=== PATIENT | male | born 1955 | race Caucasian/White ===

== ENCOUNTER → 2021-11-12 | Outpatient (CLI) | payer MEDICARE, SELFPAY ==
--- NOTE | 2021-11-12 12:30 | CT_ITS ---
STUDY: LOW DOSE CT LUNG CANCER SCREENING REASON FOR EXAM: Male, 66 years old. Lung cancer screening -- and gt;30pk yr hx;current smoker;asymptomatic RADIATION DOSAGE (If Supplied By Facility): CTDIvol = ( 3.02 ) mGy, DLP = ( 114.00 ) mGycm TECHNIQUE: No contrast was administered. Low dose technique was utilized (average mAS-38 and kVp 120). 1.25 mm axial source images with a slice interval of 1.25-mm were reconstructed in lung windows. 2.5 mm axial source images with a slice interval of 2.5-mm were reconstructed in lung windows. 5.0 mm axial source images with a slice interval of 5.0-mm were reconstructed in soft tissue windows. COMPARISON: None. NODULES: No suspicious nodules are seen. Emphysema: Hyperinflation. Diffuse emphysematous changes with centrilobular emphysema. Mild linear scarring at the right lung base. Focal reticular nodular density at the posterior medial segment of the left lower lobe. Focal bronchiectasis at that site suggestive of scarring. Endobronchial lesion: None Aorta: Atherosclerotic plaque formation of the aortic arch. CORONARY ARTERIES: Coronary artery calcification is seen. Heart: Unremarkable Pulmonary artery: Unremarkable Mediastinal nodes: Small mediastinal lymph nodes. Other chest and abdominal findings: CT/Low Dose CT Lung Screening IMPRESSION: Lung-RADS category 2 - Continue annual screening with LDCT in 12 months. IMPORTANT NOTES FOR USE: ACR Lung-RADS Version 1.1 Assessment Categories Release Date: 2018 Category: Coded 0-4 bases on nodule(s) with highest degree of suspicion. Negative screen is defined as categories 1 and 2; a positive screen is defined as categories 3 and 4. Category 3 and 4A nodules that are unchanged on interval CT should be coded as category 2, and individuals returned to screening in 12 months. Category 4X: Category 3 or 4 nodules with additional imaging findings that increase the suspicion of lung cancer, such as spiculation, GGN that doubles in size in 1 year, enlarged lymph notes, etc. Category Modifiers: S (significant finding unrelated to lung cancer) Electronically Signed: Fer Rosenthal MD at 13:37 EDT ,
== END | disposition home or self-care (01) ==
PROVIDERS: Referring Provider Nurse Practitioner Family; Visit Provider Nurse Practitioner Family
DX: Z87.891 Personal history of nicotine dependence (principal); Z12.2 Encounter for screening for malignant neoplasm of respiratory organs
CPT/HCPCS: 71271

== ENCOUNTER → 2022-08-05 | Outpatient (CLI) | payer OTHER, SELFPAY ==
[2022-08-05 14:58] LABS: PSA,Total - Annual Screen 0.58 ng/mL (0.00-4.00)
== END | disposition home or self-care (01) ==
PROVIDERS: Referring Provider Urology; Visit Provider Urology
DX: Z12.5 Encounter for screening for malignant neoplasm of prostate (principal)
CPT/HCPCS: 36415; 84153; G0103

== ENCOUNTER → 2022-09-16 | Outpatient (CLI) | payer OTHER, SELFPAY ==
--- NOTE | 2022-09-16 11:50 | RAD_ITS ---
STUDY: X-RAY - RIGHT HAND REASON FOR EXAM: Male, 67 years old. Pain. Evaluate for arthritis. TECHNIQUE: 3 view(s) of the hand. COMPARISON: None. FINDINGS: Osteopenia. Mild arthrosis of the radiocarpal articulation. Mild arthrosis of the distal radioulnar joint. Mild arthrosis of the radial carpal row of the wrist. Cystic change in the capitate. Moderate arthrosis of the first CMC joint. Mild arthrosis of the MCP and IP joints. Normal soft tissues. RAD/Hand 2 Views IMPRESSION: Osteopenia with diffuse mild osteoarthritic changes as described No acute abnormality or erosive changes. Electronically Signed: Horacio Woods MD at 9:29 EDT ,
--- NOTE | 2022-09-16 11:50 | RAD_ITS ---
STUDY: X-RAY - LEFT HAND REASON FOR EXAM: Male, 67 years old. Pain. TECHNIQUE: 3 view(s) of the hand. COMPARISON: None. FINDINGS: Osteopenia. Mild arthrosis of the radiocarpal articulation. Mild arthrosis of the distal radioulnar joint. Mild arthrosis of the radial carpal row of the wrist. Cystic change in the capitate. Moderate arthrosis of the first CMC joint. Mild arthrosis of the MCP and IP joints. Normal soft tissues. RAD/Hand 2 Views IMPRESSION: Osteopenia with diffuse mild osteoarthritic changes as described No acute abnormality or erosive changes. Electronically Signed: Horacio Woods MD at 9:32 EDT ,
== END | disposition home or self-care (01) ==
LOC: RAD 11:46
DX: M19.049 Primary osteoarthritis, unspecified hand (principal)
CPT/HCPCS: 73120

== ENCOUNTER → 2022-12-19 | Outpatient (CLI) | payer OTHER, SELFPAY ==
--- NOTE | 2022-12-22 08:27 | PFT ---
INTRODUCTION: The patient is a 67-year-old male who presents for pulmonary function studies secondary to a diagnosis of COPD. Respiratory therapy reported good patient effort. Bronchodilators were used during testing. INTERPRETATION: Forced expiration spirometry demonstrates the presence of a moderate large airways obstructive ventilatory defect. There was no significant response to aerosolized bronchodilators. Spirograms are of good quality but do not plateau indicating slow emptying of the lungs. Body plethysmography was performed and revealed an elevated TLC and RV, indicative of underlying hyperinflation and air trapping. Diffusing capacity by single breath CO is reduced to 48% of predicted. IMPRESSION: Irreversible moderate large airways obstructive ventilatory defect with associated hyperinflation, air trapping and symmetric reduction in diffusing capacity.
== END | disposition home or self-care (01) ==
LOC: PSN 12:33
DX: J44.9 Chronic obstructive pulmonary disease, unspecified (principal)
CPT/HCPCS: 94060; 94726; 94729

== ENCOUNTER → 2023-01-23 | Outpatient (CLI) | payer MEDICARE, SELFPAY ==
--- NOTE | 2023-01-23 14:07 | CT_ITS ---
EXAM: CT CHEST, LUNG CANCER SCREENING WITHOUT INTRAVENOUS CONTRAST CLINICAL INDICATION: NICOTINE DEPENDENCE TECHNIQUE: Helically acquired images were obtained of the chest without intravenous contrast using low dose (LDCT) lung cancer screening protocol. This CT exam was performed using one or more of the following dose reduction techniques: automated exposure control, adjustment of the mA and/or kV according to patient size, and/or use of iterative reconstruction technique. COMPARISON: CT Lung Cancer Screening dated 11/12/2021 FINDINGS: LUNGS AND PLEURAL SPACES: Stable diffuse pulmonary emphysema. Stable 12 mm right lower lobe pulmonary nodule. Previously noted patchy nodular densities within the left lower lobe have cleared. No pleural effusion or thickening. No pneumothorax. HEART: Normal. Heart size is normal. No pericardial effusion. No significant coronary artery calcifications. MEDIASTINUM: Moderate size hiatal hernia. No mediastinal or hilar adenopathy. Esophagus is unremarkable. THYROID: Normal. No thyroid nodules or calcification. BONES/JOINTS: No suspicious lytic or blastic abnormality. VASCULATURE: Heart is normal size. Minimal coronary artery calcification. No aortic aneurysm. LYMPH NODES: Normal. No enlarged lymph nodes. STOMACH AND BOWEL: Surgical changes of gastric sleeve. CT/Low Dose CT Lung Screening IMPRESSION: 1. Stable 12 mm right lower lobe pulmonary nodule. 2. Clearing of the previously noted left lower lobe nodular infiltrates. 3. Diffuse pulmonary emphysema. 4. Moderate size hiatal hernia. Lung-RADS score: 2S - Benign Appearance or Behavior. Additional clinically significant or potentially clinically significant findings are described. Recommend continued annual screening with a low-dose CT (LDCT) in 12 months. Electronically Signed: Misha Rashid MD at 16:29 [facility] ,
== END | disposition home or self-care (01) ==
LOC: CT 14:06
DX: Z12.2 Encounter for screening for malignant neoplasm of respiratory organs (principal); F17.210 Nicotine dependence, cigarettes, uncomplicated
CPT/HCPCS: 71271

== ENCOUNTER → 2023-07-07 | Outpatient (CLI) | payer MEDICARE, SELFPAY ==
[2023-07-07 13:29] VITALS: PULSE 62; PULSE 73; O2SAT 95; O2SAT 96
--- NOTE | 2023-07-07 13:30 | CPS ---
Patient is unable to walk any further than 10-40 ft at home. SpO2 96% sitting on room air. Patient walked with a walker for 32 feet before he felt like he may fall. SpO2 94-95%. Patient was not sure if he would be able to walk anymore and this therapist did not feel like it was safe to have him walk, as his legs were buckling during the 32 feet that he already walked.
--- NOTE | 2023-07-09 08:43 | PCM.PSN.6M ---
PSN 6 Minute Walk Test 6 Minute Walk Test 6 Minute Walk Test: 6 Minute Walk Test PSN:6-Minute Walk Test Start: 07/07/23 13:29 Freq: Status: Active Protocol: [id number].6MINW Document 07/07/23 13:29 DHARMESH (Rec: 07/07/23 13:40 DHARMESH [id number]) 6 Minute Walk Test Date Performed 07/07/23 Time Performed 12:30 Height 5 ft 11 in Weight: 197 lb Weight in Pounds 197.[address]: Yumiko Scott [employer] Assistive device used: Walker Pre-test Oxygen Delivery Method Room Air Pulse Ox (%) 96 Pulse Rate (60-100 beats/min) 62 Dyspnea Deshaun Scale (0-10) 0 Exertion Deshaun Scale (6-20) 6 1st minute Oxygen Delivery Method Room Air Pulse Ox (%) 95 Pulse Rate (60-100 beats/min) 73 Full Laps Walked 0 Partial Lap, Number of Tiles Walked 32 Total Distance Walked (ft) 32 07/07/23 13:30 Cardiopulmonary Services by Iliana Thao Patient is unable to walk any further than 10-40 ft at home. SpO2 96% sitting on room air. Patient walked with a walker for 32 feet before he felt like he may fall. SpO2 94-95%. Patient was not sure if he would be able to walk anymore and this therapist did not feel like it was safe to have him walk, as his legs were buckling during the 32 feet that he already walked. Initialized on 07/07/23 13:30 - END OF NOTE Interpretation Interpretation: The patient ambulated 32 feet over the course of the walk test, stating that he was unable to ambulate any further. Pretesting oxygen saturation was noted to be 96% on room air. With ambulation, the monique oxygen saturation was 95%. There was no significant exertional oxygen desaturation. Recommendations Recommendations: Nondiagnostic ambulatory oximetry testing due to inadequate walk distance.
== END | disposition home or self-care (01) ==
PROVIDERS: Referring Provider Nurse Practitioner Acute Care; Visit Provider Nurse Practitioner Acute Care
DX: J44.9 Chronic obstructive pulmonary disease, unspecified (principal)

== ENCOUNTER → 2023-10-28 | Outpatient (CLI) | payer MEDICARE, SELFPAY ==
--- NOTE | 2023-10-28 14:38 | CT_ITS ---
STUDY: CT BRAIN WITHOUT CONTRAST REASON FOR EXAM: Male, 68 years old. [facility] RADIATION DOSAGE (If Supplied By Facility): CTDIvol = ( 47.06 ) mGy, DLP = ( 872.68 ) mGycm TECHNIQUE: Transaxial CT imaging of the brain was performed without administration of intravenous contrast material. Individualized dose optimization techniques were used for this CT. COMPARISON: No relevant priors. FINDINGS: Normal soft tissue structures. Normal calvarium. Normal size ventricles and extra-axial spaces for the patient''s age. Normal white matter tracts of the cerebral hemispheres. Normal basal ganglia and thalami. Normal brainstem. Normal cerebellum. There is no intracranial hemorrhage. There are no findings of an acute ischemic infarction. Normal visualized paranasal sinuses. CT/Brain/Head without Contrast IMPRESSION: Normal unenhanced CT scan of the brain. Electronically Signed: Teja Lopes MD at 22:16 EDT ,
== END | disposition home or self-care (01) ==
LOC: CT 14:23
DX: G31.84 Mild cognitive impairment of uncertain or unknown etiology (principal)
CPT/HCPCS: 70450

== ENCOUNTER 2024-06-20 14:30 | Outpatient (RCR) | payer MEDICARE, SELFPAY ==
--- NOTE | 2024-05-03 14:30 | HP.PTEVAL_ITS ---
Patient's Visit Information Visit Information Visit Information: MILAGROS BARCLAY is a 69 year old M referred to Physical Therapy by Dr. Van Machuca MD with a diagnosis of LUMBAR RADICULOPATHY. Date of Evaluation: 05/03/24 Physical Therapist: Burt Sanderson, PT, Cert MDT, OCS Visit Plan Frequency: 2x /Week Duration: 4 Weeks Plan: PATIENT IS HIGHLY IRRITABLE PAIN PT INTERVENTIONS DLS ,POSTURAL EX'S ,BLE STRENGTHENING ,FUNCTIONAL STRENGTHENING ,ENDURANCE EX'S AND MODALITIES Subjective Subjective: This 69 y/o male presents to physical therapy with generalized weakness. Patient has developed progressive weakness in legs ~ 2 years. Patient states generalized weakness in arms. Patient has lumbar fusion x3 ,1982 ,1999 and revision 2000,bilateral TKA Patient has complexity issues .Patient symptoms have been worsening global throughout body. Patient is negative for neuropathy .Patient is recovered from lung CA. Patient plans neurological center at [facility]. Patient is frustrated with pain and function . States Dr doesn't know way I have pain. Patient vision decreasing has difficulty reading. Patient pain is aggravated with walking/standing . Patient can only 100 ft with rollator in PT due to pain and weakness. Unable to squat, lifting and bending Coughing/sneezing -. Bowel/bladder -.Patei No pain medication. Patient pain and weakness impairs ADLS and housework tasks. Alleviating lives 1 floor apartment. Tub/shower set up with step. Patient has case manger throughout [facility]. Patient has difficulty with generalized ADL. SOCIAL: lives alone Pain Bilateral Lower Extremity: Pain Intensity (Out of 10): 8 Pain Intensity Range: 10 Bilateral Back: Pain Intensity (Out of 10): 10 Pain Intensity Range: 10 Bilateral Shoulder: Pain Intensity (Out of 10): 8 Objective Objective: POSTURE: mild forward posture GAIT:reciprocal pattern with rollator slow millicent forward posture needs rest PALPATION: tender LS /SI LUMBAR ROM: flexion mod ,extension mod/severe loss ,side glides mod loss FLEXABILITY: hamstrings mod/severe loss NEURO: denies paresthesia/tingling occasional fingers MMT:( peak force) quads 9.7 left ,right 9.8 ,hamstrings right 10.9 ,left 11.2 ,hip flexion right 18.9 ,left 17 ,8 ,ankle left 0 DF Special Tests L/S Left Straight Leg Raise: Negative L/S Right Straight Leg Raise: Negative L/S Left Femoral Nerve Tension: Negative L/S Right Femoral Nerve Tension: Negative Balance/Special Test Scores Oswestry Low Back Score: 39 Goals Goal 1:: Patient to be I with HEP for strengthening Goal Time Frame: 4-6 Weeks Goal 2:: Patient to improve peak force of quads/hams /hip by 5-10 # to improve gait and function Goal Time Frame: 4-6 Weeks Goal 3:: Patient to improve lumbar ROM for function of recovery to put on shoes . Goal Time Frame: 4-6 Weeks Goal 4:: Patient to improve BACK score by 5 points to improve QOL and function Goal Time Frame: 4-6 Weeks Goal 5:: Patient to demonstrate 40% improvement with less pain and improved function Goal Time Frame: 4-6 Weeks Rehabilitation Potential Physical Therapy Diagnosis: This patient has complexity issues with pain global h/o lumbar fusion x3 ,TKA x2 with weakness in legs ,poor lumbar ROM ,impairs gait and ADLS with patient presents with frustration with condition thus benefit from skilled PT Rehabilitation Potential: Fair Anticipated Interventions Patient/Client Instruction: Educate patient on: Condition and Plan of Care For the Purpose of:: To decrease pain, To increase ROM, To improve muscle performance and motor function, To improve ability to perform ADL's, To increase tolerance to activity/condition/position, To improve performance and independence with ADL's, To improve ability of physical actions for home/community/work/leisure, To improve gait and locomotor functions, To increase flexibility/ROM, To improve endurance, To improve balance and To improve tolerance to ADL's Therapeutic Exercise to Include: Strength training, Endurance training, Balance training, Postural training, Flexibilty training and Dynamic Lumbar Stabilization Comment: BLE For the Purpose of:: To decrease pain, To increase ROM, To improve muscle performance and motor function, To improve ability to perform ADL's, To increase tolerance to activity/condition/position, To improve ability of physical actions for home/community/work/leisure, To improve gait and locomotor functions, To improve health of tissue, To decrease soft tissue restriction, To improve balance, To reduce risk of recurrence and To improve tolerance to ADL's TENS: Yes IF ES: Yes Cryotherapy (ice pack, ice massage): Yes Thermo therapy (hot pack): Yes Ultrasound (thermal/non thermal): Yes For the Purpose of:: To decrease pain, To increase ROM, To improve nutrient delivery to tissue, To increase oxygenation perfusion, To improve health of tissue and To decrease soft tissue restriction Text: Thank you for the opportunity to evaluate your patient. For Medicare and Medicare HMO plans, please review the plan of care and approve it. It will need to be FAXED BACK to us at [phone] for Medicare purposes. For Medicare only, by signing this I certify the plan of care. Please let me know if there are questions or concerns regarding this plan of care. Physician Signature: Date:
--- NOTE | 2024-06-20 15:14 | HP.PTDCSUM_ITS ---
Discharge Summary D/C summary: It has been my pleasure to treat MILAGROS BARCLAY referred by Dr. Van Machuca MD, with the diagnosis of LUMBAR RADICULOPATHY for a total of 4 visit(s). Discharge Date: 06/20/24 Please see the following information for a summary of their discharge status. Subjective Subjective: Saw pain and neuro doctor in [facility] last Thursday and said he has FM. Too many other doctor do not know. Offered gabapentin but does not wan t to take. Seen 14 doctors for this and biopsies and no one knows what is going on. Can't even wear socks today b/c whole legs hurt. 01/18. Fell recently so using walker since. Home bound and sits in recliner all day. Cannot remember seeing Sven in pain management. Only hting that helps me is acupunture but cannot get to [place] for treatment. No regular exercises as he is afraid to get out of chair. Fearful of legs giving out. Has paid for ex the couple times he has done them in here with pain the next day. Has planning supervisor that he uses to heelp him out, he is mostly mostly homebound. Deals with [facility] . Pain Bilateral Lower Extremity: Pain Intensity (Out of 10): 10 Bilateral Back: Pain Intensity (Out of 10): 9 Bilateral Shoulder: Pain Intensity (Out of 10): Unrated Overall Improvement % Improvement: 0 Objective Objective/Function: Walks slowly with wh walker today hunched over and uncertain of gait. Legs seem to quickly and without warning sightly give out every now and then without increased pain and causes him to want to sit on his rollator often. Unable to stand up tall even to a neutral position in spine, head is forward adn scapula protracted. Very tensee with chronic pain. legs are weak with 3/5 hip flexion and knee ext and muscle vanessa not available today. UE feel weak alos. Pt frustrated with chronic pain and lack of solutions from multiple doctors. In tears at time, has meeting with counselor this week. Goals Goal 1:: Patient to be I with HEP for strengthening Goal Progress: Not Progressing Goal 2:: Patient to improve peak force of quads/hams /hip by 5-10 # to improve gait and function Goal Progress: Not Progressing Goal 3:: Patient to improve lumbar ROM for function of recovery to put on shoes . Goal Progress: Not Progressing Goal 4:: Patient to improve BACK score by 5 points to improve QOL and function Goal Progress: Not Progressing Goal 5:: Patient to demonstrate 40% improvement with less pain and improved function Goal Progress: Not Progressing Plan Plan: d/c PT, inconsistent with visits due to limited trasnportation and frustration. Paid for ex the day after when he did make it in. Worsening overall adn very frustrated with lack of pain control and arm and leg symptoms. Pt is to contact doctor Prayson regarding other options for managing pain andspinal doctor should be considered based on presentation if not seen recently. Aquatic therapy should be considered an option once pain is under control D/C Information Discharge Comments: pt not progressing and needs answers to pain and dysfunction due to frustration. d/c sentence: If there are questions or concerns regarding this patient's physical therapy, please feel free to call me at [phone]. Thank you for the referral of this patient. Sincerely, Theo Francois, DPT, OCS, CSCS Balance/Gait/Functional tests Balance/Special Test Scores Oswestry Low Back Score: 40 Improvement % Improvement: 0
== END 2024-06-20 19:00 | disposition home or self-care (01) ==
LOC: PT 14:30
PROVIDERS: Referring Provider Anesthesiology; Visit Provider Anesthesiology
DX: M54.16 Radiculopathy, lumbar region (principal)
CPT/HCPCS: 97110; 97162; 97164

== ENCOUNTER → 2024-08-01 | Outpatient (CLI) | payer MEDICARE, SELFPAY ==
--- NOTE | 2024-08-01 13:15 | US_ITS ---
PROCEDURE: KIDNEY AND BLADDER 08/01/2024 REASON FOR EXAM: BENIGN PROSTATIC HYPERPLASIA TECHNIQUE: KIDNEY AND BLADDER COMPARISON: None FINDINGS: Kidneys: Normal renal sizes, parenchymal thicknesses, and echotextures. [place]: No evidence of hydronephrosis. Cysts or Masses: No cysts or large solid renal masses. RIGHT Kidney Size: 10.5 cm x 5.3 cm x 4 cm Volume: 116.03 mL Cortical Thickness (if discernible): 10 mm (>6mm is normal) LEFT Kidney Size: 10.9 cm x 4.9 cm x 5 cm Volume: 140.77 mL Cortical Thickness (if discernible): 11 mm (>6mm is normal) The urinary bladder is unremarkable. US/Kidney and Bladder IMPRESSION: NORMAL RENAL ULTRASOUND. Reading Location: [id number]
== END | disposition home or self-care (01) ==
LOC: US 13:13
DX: N40.1 Benign prostatic hyperplasia with lower urinary tract symptoms (principal)
CPT/HCPCS: 76770

== ENCOUNTER → 2024-12-14 | Outpatient (CLI) | payer MEDICARE, SELFPAY ==
--- NOTE | 2024-12-14 14:08 | CT_ITS ---
PROCEDURE: LOW DOSE CT LUNG SCREENING 12/14/2024 REASON FOR EXAM: SMOKER TECHNIQUE: Procedure Code: CTLUNG SCREEN Modality: CT Procedure: LOW DOSE CT LUNG SCREENING Coronal and Sagittal reconstruction series were provided. One or more dose reduction techniques were used (e.g., Automated exposure control, adjustment of the mA and/or kV according to patient size, use of iterative reconstruction technique). RADIATION DOSE SUMMARY: CTDlvol: 3 mGy DLP: 115 mGycm COMPARISON: January 23, 2023, November 12, 2021 FINDINGS: Pulmonary Nodules: Irregular, spiculated nodule right lower lobe has increased in size. Maximal dimension 19 mm on image 150. Previously 12 mm. Nodule versus atelectasis left lower lobe on image 150 is 8.3 mm. Nodular airspace opacities in the lingula on image 165 measuring 16 mm, and another in the lingula measuring 17 mm on image 182. Finally in the left lower lobe on image 171 there is a nodule measuring 15 mm. Surrounding atelectasis and ground-glass is present Hardware:None Lymph Nodes:None appear enlarged Heart and Vasculature:Normal-size. No pericardial effusion.[id number] atherosclerotic plaque of the aortic arch. Coronary Artery Calcifications: Present Lungs and Airways: Upper lobe predominant centrilobular and paraseptal emphysema is present. Dependent atelectasis is shown bilaterally, [id number] which also includes portions of the inferior lingula. Pleura:No pleural effusion or pneumothorax Upper Abdomen:Prior gastric sleeve. Hiatus hernia. Foodstuff is seen within the mildly distended thoracic esophagus up to the thoracic inlet. Bones:Mild degenerative changes lower thoracic spine CT/Low Dose CT Lung Screening IMPRESSION: 1. Interval increase in size of the index nodule worrisome for potential malig randy. ACR Lung-RADS guidelines suggest the following: Category 4B (Very Suspicious). Diagnostic chest CT with or without c ontrast; PET/CT may be considered if there is a=8mm(=268mm3) solid nodule or solid component; tissue sampling; and/or referra l for further clinical evaluation. Management depends on clinical evaluation, patient preference, and the probability of zoie gnancy. 2. New nodules in the lingula and left lower lobe. Nodular airspace opacity v ersus pulmonary nodules. These can be assessed at PET scanning with the above. 3. Prior gastric sleeve. Dilated thoracic esophagus with food stuff present. Aspiration risk. 4. Emphysema Yellow Alert: Lung nodules worrisome for malignancy The critical findings in the findings and impression above were relayed directl y by me by telephone to Yumiko Scott on 12/16/2024 at 8:27 am with readback verification. Reading Location: [id number]
== END | disposition home or self-care (01) ==
LOC: CT 15:35
PROVIDERS: Referring Provider Nurse Practitioner Acute Care; Visit Provider Nurse Practitioner Acute Care
DX: F17.210 Nicotine dependence, cigarettes, uncomplicated (principal)
CPT/HCPCS: 71271